=== PATIENT | female | born 1935 | race Caucasian/White ===

== ENCOUNTER 2018-02-01 07:32 | Inpatient (IN) ==
[2018-01-28 12:26] LABS: Basophils # (Auto) 0 K/mcL (0.0-0.3); Basophils % (Auto) 0.6 % (0.0-2.0); Eosinophils # (Auto) 0.2 K/mcL (0.0-0.7); Eosinophils % (Auto) 3.2 % (0.0-7.0); Granulocytes % (Auto) 58.5 % (38.0-78.0); Lymphocytes # (Auto) 1.5 K/mcL (1.5-4.8); Lymphocytes % (Auto) 31.3 % (15.5-49.0); Mean Cell Volume 95.7 fL (80.0-100.0); Mean Corpuscular HGB Conc 33.2 g/dL (31.0-36.0); Mean Corpuscular Hemoglobin 31.7 pg (26.0-34.0); Monocytes # (Auto) 0.3 K/mcL (0.1-0.9); Monocytes % (Auto) 6.4 % (1.0-12.0); Platelet Count 247 K/mcL (140-440); RBC 4.83 M/mcL (4.00-5.20); Red Cell Distribution Width 14.9 % (11.5-14.5)
[2018-01-28 12:27] LABS: Blood Urea Nitrogen 11 mg/dl (8-23)
[2018-01-28 13:32] LABS: Appearance,Urine CLEAR; Bilirubin,Urine NEG (NEG); Color,Urine YELLOW; Glucose,Urine (UA) NEGATIVE (NEG); Leukocyte Esterase,Urine NEG /uL (NEG); Protein,Urine NEG (NEG); Specific Gravity,Urine 1.012 (1.000-1.035); Urine Blood NEG mg/dL (<0.03); Urobilinogen,Urine NEG (NEG)
[~2018-02-01 07:32] MED LIST: IPRATROPIUM/ALBUTEROL 3 ML AMPUL.NEB NEB PRN
[2018-02-01] MEDS ORDERED: ACETAMINOPHEN 500 MG TABLET PO SCH (08:00)
[2018-02-01] MEDS ORDERED: CELECOXIB 200 MG CAPSULE PO SCH (08:45)
[2018-02-01] MEDS ORDERED: oxyCODONE 10 MG TAB.ER.12H PO SCH (08:45)
[2018-02-01] MEDS ORDERED: ceFAZolin 1 GM VIAL IV SCH (08:45)
[2018-02-01] MEDS ORDERED: PREGABALIN 75 MG CAPSULE PO SCH (08:45)
[2018-02-01] MEDS ORDERED: SCOPOLAMINE 1 PATCH PATCH TOPICAL PRN (09:20)
[2018-02-01] MEDS ORDERED: LIDOCAINE HCL/PF 100 MG/5 ML SYRINGE IV ONE (10:32)
[2018-02-01] MEDS ORDERED: PROPOFOL 200 MG/20 ML VIAL IV ONE (10:32)
[2018-02-01] MEDS ORDERED: DEXAMETHASONE 10 MG/ML VIAL ONE (10:32)
[2018-02-01] MEDS ORDERED: MIDAZOLAM 2 MG/2 ML VIAL ONE (10:32)
[2018-02-01] MEDS ORDERED: ePHEDrine 50 MG/ML AMPUL IV ONE (10:32)
[2018-02-01] MEDS ORDERED: ESMOLOL 100 MG/10 ML VIAL IV ONE (10:32)
[2018-02-01] MEDS ORDERED: GENTAMICIN SULFATE 800 MG/20 ML VIAL IR ONE (11:06)
[2018-02-01] MEDS ORDERED: PROMETHAZINE 25 MG/ML VIAL IV PRN (11:32)
[2018-02-01] MEDS ORDERED: ONDANSETRON 4 MG/2 ML VIAL IV PRN ×2 (11:32→12:22)
[2018-02-01] MEDS ORDERED: ePHEDrine 50 MG/ML AMPUL IV PRN (11:32)
[2018-02-01] MEDS ORDERED: ATROPINE SULFATE 0.4 MG/ML VIAL IV PRN (11:32)
[2018-02-01] MEDS ORDERED: HYDROmorphone 2 MG/ML VIAL IV PRN ×2 (11:32→12:22)
[2018-02-01] MEDS ORDERED: METHOCARBAMOL 1,000 MG/10 ML VIAL IV PRN (11:32)
[2018-02-01] MEDS ORDERED: IPRATROPIUM/ALBUTEROL 3 ML AMPUL.NEB NEB PRN (11:32)
[2018-02-01] MEDS ORDERED: MEPERIDINE 25 MG/ML SYRINGE IV PRN (11:32)
[2018-02-01] MEDS ORDERED: FLUMAZENIL 0.1 MG/ML ML IV PRN (11:32)
[2018-02-01] MEDS ORDERED: fentaNYL 100 MCG/2 ML VIAL IV PRN (11:32)
[2018-02-01] MEDS ORDERED: NALOXONE HCL 0.4 MG/ML VIAL IV PRN (11:32)
[2018-02-01] MEDS ORDERED: diphenhydrAMINE 50 MG/ML VIAL IV PRN (11:32)
[2018-02-01] MEDS ORDERED: METOPROLOL TARTRATE 5 MG/5 ML VIAL IV PRN (11:32)
[2018-02-01] MEDS ORDERED: LACTATED RINGERS 1,000 ML IV SCH (11:45)
--- NOTE | 2018-02-01 11:59 | Brief Operative Note ---
Date of procedure: 02/01/18 Pre-op diagnosis: right knee djd Post-op diagnosis: same Procedure: right tka Grafts/Implants: Yes Anesthesia: GETA Findings: none Complications: none Surgeon: Natan Cuevsa Tailercpa: Terrence Rubin Estimated blood loss (cc): 20 Tourniquet Time (Minutes): 45 Specimens Removed/Pathology: none sent Condition: stable Disposition: PACU
[2018-02-01] MEDS ORDERED: KETOROLAC 30 MG, ROPIVACAINE HCL/PF 49.5 ML, EPINEPHrine 0.5 MG, 0.9 % SODIUM CHLORIDE ... IJ ONE (12:00)
[2018-02-01] MEDS ORDERED: ACETAMINOPHEN 325 MG TABLET PO PRN (12:22)
[2018-02-01] MEDS ORDERED: BISACODYL 10 MG SUPP.RECT PR PRN (12:22)
[2018-02-01] MEDS ORDERED: MAGNESIUM HYDROXIDE 30 ML ORAL.SUSP PO PRN (12:22)
[2018-02-01] MEDS ORDERED: TRANEXAMIC ACID 1,000 MG/10 ML VIAL IV SCH (12:22)
[2018-02-01] MEDS ORDERED: FLEETS ADULT ENEMA PR PRN (12:22)
[2018-02-01] MEDS ORDERED: POLYETHYLENE GLYCOL 3350 17 GM PACKET PO PRN (12:22)
[2018-02-01] MEDS ORDERED: BENZOCAINE/MENTHOL 1 LOZENGE PO PRN (12:22)
--- NOTE | 2018-02-01 13:23 | Operative Note ---
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 POSTOPERATIVE DIAGNOSIS: Same. PROCEDURE: Right total knee arthroplasty. SURGEON: Natan Cuevas MD STAPLE SHEAR OPERATOR: Terrence Rubin PA-C ANESTHESIA: General LMA anesthesia. COMPLICATIONS: None. TOTAL TOURNIQUET TIME: Approximately 45 minutes. DESCRIPTION OF PROCEDURE: The patient was brought to the operating room and put to sleep with general LMA anesthesia. Once asleep, the patient had the right leg sterilely prepped and draped in the usual sterile fashion. Once this was done, we made a midline incision mid vastus approach performed. I inspected all areas of the knee. Once this was done, I reinspected underneath the patella which showed very soft cartilage with a cystic change underneath the lateral facet of the patella with narrowing. Medially there was almost bone on bone contact with a meniscus tear. With these two findings, we proceeded with a total knee arthroplasty. Two pins above and below the knee were placed. We registered 30 points on the femur and tibia, balanced the knee in flexion and extension, registered medial and lateral malleoli. We then tested stability of the knee and tightness both in flexion and extension and then we were able to bring in the robot and make the cuts appropriate for this knee perfectly balanced with rotation, varus valgus. Once the bone was removed, we removed the remnants of the meniscus and trialed the size 4 femur and size 4 tibial baseplate with a 9 or 10 poly. The 9 had 2 mm of play. The 11 had 0 mm of play. One brought the patient back to 5.5 mm extension and the other brought her to 3 degrees of extension. With this, we chose a 9 mm. We prepared the patella and measured 24 mm in total thickness. This was cut to 14, resurfaced the patella. All these components were placed and cemented into place after preparing the bone with pulse lavage and CarboJet. These fit very well. Excess cement was removed. A 9 mm poly placed and the knee was kept at 45 degrees until all components were dry. Tourniquet was deflated and we repaired the mid vastus approach with #1 Stratafix x2 stitches, closed the fascial pin holes with 3-0 nylon. The patient tolerated this well. There were no complications. [email or web address] Job ID: [id number] Doc ID: [id number] Natan Cuevas MD
[2018-02-01] MEDS: HYDROcodone/APAP 10/325MG TABLET PO PRN (14:07)
[2018-02-01] MEDS: 0.45 % SODIUM CHLORIDE 1,000 ML IV SCH (14:07)
--- NOTE | 2018-02-01 14:09 | XRay Report ---
CLINICAL INFORMATION: Postop total knee prostheses COMPARISON: None. FINDINGS: Total knee prostheses is anatomically aligned. No osseous abnormality. Soft tissues swelling seen as expected IMPRESSION: Negative Interpreted and Authenticated by: Ian Pyle 02/01/18
[2018-02-01] MEDS: 0.9 % SODIUM CHLORIDE 10 ML SYRINGE IV SCH ×2 (14:10→21:06)
[2018-02-01] MEDS: KETOROLAC 30 MG/ML VIAL IV SCH (18:34)
[2018-02-01] MEDS: ceFAZolin 1 GM VIAL IV SCH (19:17)
[2018-02-01] MEDS ORDERED: SENNOSIDES 1 TABLET PO SCH (21:00)
[2018-02-01] MEDS ORDERED: TEMAZEPAM 15 MG CAPSULE PO PRN (21:00)
[2018-02-01] MEDS: ASPIRIN 325 MG ENTERIC COATED TABLET PO SCH (21:05)
[2018-02-01] MEDS: DOCUSATE SODIUM 100 MG CAPSULE PO SCH (21:05)
[2018-02-02] MEDS: 0.45 % SODIUM CHLORIDE 1,000 ML IV SCH ×2 (00:18→09:12)
[2018-02-02] MEDS: KETOROLAC 30 MG/ML VIAL IV SCH ×2 (00:19→05:26)
[2018-02-02] MEDS: ceFAZolin 1 GM VIAL IV SCH (02:08)
[2018-02-02] MEDS ORDERED: MAGNESIUM SULFATE 0 GM/0 ML BAG IV ONE (03:47)
[2018-02-02] MEDS: 0.9 % SODIUM CHLORIDE 10 ML SYRINGE IV SCH (05:22)
--- NOTE | 2018-02-02 07:40 | Orthopedic Progress Note ---
Subjective Patient information: Note initiated : 02/02/18 at 7:39 am Service Date, if different from initiated Date: [] Patient: Debora Lawrence 82 y/o F admitted on 02/01/18 for Right Uni Medial David Knee/Went to Total Knee. Chief Complaint: [Pt is stable this morning on post operative day 1 without any significant concerns or complaints. Patients vital signs have remained stable. Patients dressing is dry and is grossly instact from a neurovascular and motor standpoint. Patients 10 point ROS is otherwise negative. ] Objective Vital signs: Vital Signs Temp Pulse Resp BP Pulse Ox 02/02/18 07:08 98.5 F 63 12 98/54 98 02/02/18 03:03 97.4 F 63 12 94/54 93 02/02/18 03:02 93 02/02/18 00:00 98.2 F 73 12 90/49 95 02/01/18 20:00 98.9 F 74 12 103/47 94 02/01/18 16:22 97 02/01/18 15:30 104/57 93 02/01/18 14:30 111/59 94 02/01/18 14:00 103/61 94 02/01/18 13:30 114/56 90 02/01/18 13:15 120/59 90 02/01/18 13:01 128/59 90 02/01/18 12:51 98.4 F 65 12 113/50 98 02/01/18 12:35 84 15 119/59 95 02/01/18 12:20 82 13 119/57 97 02/01/18 12:05 97.9 F 91 H 9 L 107/51 96 02/01/18 07:57 97.5 F 61 16 126/59 99 Intake and Output 02/01/18 02/02/18 02/02/18 21:59 05:59 13:59 Intake Total 240 / 240 1200 / 1200 Output Total 951 / 951 950 / 950 Balance -711 / -711 250 / 250 Intake: IV 1000 / 1000 Sodium Chloride 0.45% 1,000 ml 1000 / 1000 @ 100 mls/hr IV .Q10H [facility] Rx#: [id number] Oral 240 / 240 200 / 200 Output: Urine Catheter Amount 600 / 600 Void Amount 350 / 350 950 / 950 # of times incontinent of urine Other: Meal Dinner Percent of Meal Consumed 100% # Voids 1 1 Weight 135 lb Intake & Output: Intake & Output 02/01/18 02/02/18 02/02/18 21:59 05:59 13:59 Intake Total 240 / 240 1200 / 1200 Output Total 951 / 951 950 / 950 Balance -711 / -711 250 / 250 Weight 135 lb Intake: IV 1000 / 1000 Sodium Chloride 0.45% 1,000 ml 1000 / 1000 @ 100 mls/hr IV .Q10H [facility] Rx#: [id number] Oral 240 / 240 200 / 200 Output: Urine Catheter Amount 600 / 600 Void Amount 350 / 350 950 / 950 # of times incontinent of urine Other: Meal Dinner Percent of Meal Consumed 100% # Voids 1 1 Incision: Yes healing Incision clean and dry: Yes Dressing: Yes clean Weight bearing status: as tolerated Neurological exam IM: Yes motor sensory intact, Yes neurovascular intact Extremities exam IM: Yes Foot pink and warm, Yes neurovascular intact - Labs CBC & BMP: 02/02/18 04:46 01/28/18 09:18 Labs: Orthopedic Labs 01/28/18 09:18 PT 13.2 INR 1.0 APTT 30 02/02/18 01/28/18 04:46 09:18 Hgb 15.3 H Hct 35.4 L 46.2 Assessment and Plan (1) Hx of total knee arthroplasty The patient has been educated regarding dressing care, Physical Therapy recommendations, home exercises, restrictions, and follow up appointments. The patient has had all necessary DME prescribed. The patient has remained stable during their hospital course. The patient was discharge with a stable exam. Leave Dermabond patch intact until followup Status: Acute
--- NOTE | 2018-02-02 07:43 | Discharge Summary ---
Ortho Discharge - TKA - Patient Instructions Diet: Regular Diet Activity: activity as tolerated, weight bearing as tolerated Total Knee Protocol: For Total Knee: Start ROM FRANK with stationary bike or rocking chair. Work on gaining full extension of knee. Posterior dislocation precautions provided. Hip abductor strengthening and gait training instructions provided. Apply Cryocuff as instructed. Dressing Care: May shower in 2 days - Problem Maintenance (1) Hx of total knee arthroplasty Status: Acute - Follow Up Plan Disposition: Home, Self-Care Prognosis: Good Rehab Potential: Good I certify that the patient requires SNF services: No Overall status at discharge: patient is progressing back to baseline - Orders For Discharge Prescriptions: Aspirin [Ecotrin] 325 mg PO BID #60 tab.ec Docusate Sodium [Colace] 100 mg PO BID #60 capsule HYDROcodone/APAP 10/325MG [Cary 10-325Mg] 1 - 2 tab PO Q4HP PRN #75 tablet PRN Reason: Pain Level 3-6
[2018-02-02] MEDS: HYDROcodone/APAP 10/325MG TABLET PO PRN (09:12)
[2018-02-02] MEDS: DOCUSATE SODIUM 100 MG CAPSULE PO SCH (09:12)
[2018-02-02] MEDS: ASPIRIN 325 MG ENTERIC COATED TABLET PO SCH (09:13)
== END 2018-02-02 11:45 | disposition home or self-care (01) | DRG 470 ==
LOC: SUR 07:32 → MEDSUR 12:56
PROVIDERS: ADMIT Orthopaedic Surgery; ATTEND Orthopaedic Surgery